=== PATIENT | male | born 1955 | race Caucasian/White ===

== ENCOUNTER → 2017-01-04 | Day surgery (SDC) | payer OTHER ==
--- NOTE | 2016-12-18 14:29 | PCM.ANEPRE ---
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 Echo also has been ordered but not completed for the same reason. Since this is an L&I case, presumably the patient can do > 4 mets. This is a low risk procedure, which is also amenable to a regional anesthetic technique. Okay to proceed provided patient doesn't have any active unstable conditions on evaluation DOS. Recommend monitoring per DONTE protocol post-op. Luis Antonio Motley MD Dec 18, 2016 14:29
[2017-01-04] VITALS (10 sets, daily range): BP systolic 105–124; BP diastolic 62–91; PULSE 60–69; RESP 10–16; O2SAT 93–97
[~2017-01-04] VITALS: Ht 180.3 cm; Wt 129.5 kg
[~2017-01-04] MED LIST: AMLO10TA3 PO; ASPI-973 PO; DOXA2TAB52 PO; Dexamethasone 4 mg/mL Inj IVPUSH PRN; Dexamethasone 4 mg/mL Inj ONE; EPHEDrine Sulfate 50 mg/mL Inj IVPUSH PRN; HYDROcodone-APAP 5-325 mg Tablet PO PRN; HYDROmorphone 1 mg/mL Inj IVPUSH PRN; HYG25 PO; Lactated Ringer's 1,000 ML IV SCH; Lactated Ringer's 500 ML IV PRN; Lidocaine 2%-Epi 1:100,000 20 mL Inj INFILTRATE ONE; MetoCLOpramide 5 mg/mL 2 mL Inj IVPUSH PRN; Ondansetron 2 mg/mL 2 mL Inj IVPUSH PRN; Ondansetron 2 mg/mL 2 mL Inj ONE; Phenylephrine 10,000 mCg/mL Inj IVPUSH PRN; Propofol 10 mg/mL 20 mL Inj ONE; Ropivacaine-PF 0.5% 30 mL Inj INFILTRATE ONE; SPIR100T3 PO; Succinylcholine Chloride 20 mg/mL 5 mL Inj ONE; VALS320T12 PO; fentaNYL-PF 50 mCg/mL 2 mL Inj IVPUSH PRN; fentaNYL-PF 50 mCg/mL 2 mL Inj ONE
[2017-01-04] MEDS: Lactated Ringer's 1,000 ML IV SCH ×2 (06:45→08:45)
--- NOTE | 2017-01-04 09:17 | PCM.HPANE ---
Patient Data Surgeon Admitting Provider: Attending Provider:Kole Leonard DO Primary Care Physician:Marlen Other Provider:Jeremy Cooley Anesthesia Reason for Visit Left Medial Meniscal Tear Ht/WT & BMI Height (Feet): 5 Height (Inches): 11 Weight (Kilograms): 131.17 Body Mass Index 40.00 Allergies Coded Allergies: bisoprolol (Verified Allergy, Unknown, slow pulse, 12/27/16) lisinopril (Verified Allergy, Unknown, cough, 12/27/16) Past Anesthesia History Anesthesia History: Denies:: Abnormal Airway, Anesthesia Reactions (no prior surgery), Difficult Intubation, Fam Anesthesia Reaction Diabetes History Hx Diabetes?: No MRSA MRSA: No Medications Blood Thinner: Aspirin Hypertension Medication: Yes Home Meds Incl Beta Alvarez: No Reported Medications Valsartan 320 Mg [id number] Mg PO DAILY 12/27/16 Spironolactone 100 Mg [id number] Mg PO DAILY #30 TABLET Ref 0 12/27/16 Doxazosin (Cardura)2 Mg Tablet2 Mg PO HS Ref 0 12/27/16 Chlorthalidone 25 Mg [id number] Mg PO DAILY #30 TABLET 12/27/16 Aspirin 81 Mg [id number] Mg PO DAILY Ref 0 12/27/16 Amlodipine 10 Mg [id number] Mg PO DAILY Ref 0 12/27/16 History History of ENT Problems?: No HEENT History: Positive for:: Hearing Problem Denies:: Abnormal Airway Cataracts Difficult Intubation Dysphagia Glaucoma Sinus Problem TMJ Denture Type: None Teeth Condition: Within Normal Limits Hx of Heart Problems?: Yes Cardiovascular History: Positive for:: Hypertension Denies:: AICD Coronary Artery Disease Edema Heart Murmur Irregular Heartbeat Pacemaker Peripheral Vascular Rheumatic Fever Thrombophlebitis Valvular Heart Disease Hx of Respiratory Problem?: Yes Respiratory History: Positive for:: Pneumonia (many years ago ) Denies:: Asthma COPD Emphysema Tuberculosis Use of C-PAP Machine (DONTE+ no sleep study done) Hx Neurologic Problems?: No Neurological History: Denies:: Alzheimer's Disease CVA Dementia Dizziness Headaches Multiple Sclerosis Parkinson's Disease Seizures TIA Hx of GI Problems?: No Hx of Problems?: Yes Genitourinary History: Positive for:: Kidney Stones (past hx of - passed spontaneously) Denies:: Urinary Tract Infection Male Hx: Denies:: Prostate Problems Skin History: Denies:: History Skin Disorders? Pressure Ulcers Hx Musculoskeletal Problems?: Yes Musculoskeletal History: Positive for:: Musculoskeletal Trauma (left knee current admission problem) Osteoarthritis Denies:: Back Injury Fibromyalgia Joint Replacement Myasthenia Gravis Systemic Lupus Hx of Psycho/Social Problems?: Yes Psycho Social History: Positive for:: Anxiety Denies:: Hx Depression Hx Surgeries?: No (no prior) Hx Any Other Health Problems?: Yes Other History: Denies:: Cancer Thyroid Disease History Blood Transfusions: Positive for:: Accept Blood Products? Denies:: Blood Transfusions Hx Diabetes: No Hx Alcohol Use: YesAlcoholic Drinks Per Day: rarely- years apartHx Substance Use: NoHave You Smoked inLast 12 mo: No Stop/Bang S-Snoring: Do You Snore Loudly: Yes T-Tired: feel tired, fatigued: No O-Obsered: Observed not breath: No P-Blood Pressure: treated: Yes B- Body Mass Index > 35 kg/m2: Yes A- Age over 50: Yes N- Neck Large Circumference: Yes G- Gender Male: Yes DONTE Total Score: 6 DONTE Risk Assessment: High Risk, =/>3 Yes DONTE Category 4 OutPt Procedure: Yes Risk Assessment Category Category 1A: Patient has history of documented sleep apnea, and HAS NOT received any narcotic, sedative or anesthesia administration during this stay. Category 1B: Patient has history of documented sleep apnea, and HAS received any narcotic , sedative or anesthesia administration during this stay Category 2: Patient has SUSPECTED Obstructive Sleep Apnea, and HAS received any narcotic , sedative or anesthesia administration during this stay. Category 3: Patient has SUSPECTED Obstructive Sleep Apnea and HAS NOT received narcotic, sedative or anesthesia administration during this stay. Category 4: Outpatient in Procedural Areas with known sleep apnea or who screen positive for High Risk via the STOP/BANG questionnaire. Exam Exam Vital Signs Vital Signs Date Time Temp Pulse Resp B/P Pulse Ox O2 Delivery O2 Flow Rate FiO2 01/04/17 07:01 64 12 119/62 95 Room Air General Appearance: Alert HEENT/AIRWAY: MP 2, Neck Movement (from, 2.5 fb) Lungs: Clear to Auscultation Heart: Regular Rate/Rhythm Meds/Labs/Diagnostics Admission Meds Current Medications Lactated Ringer's (Lr) 1,000 ml @ 120 mls/hr Q8H20M IV Last administered on t 06:45; Start 01/04/17 at 05:00; Stop 01/04/17 at 13:19 Plan Impression Patient chart reviewed, patient interviewed and anesthestic plan with risks, benefits, and alternatives discussed, and informed consent obtained. NPO per Anesth. Guidelines: Yes ASA Physical Status: ASA2 Mod Systemic Disease Anesthetic Plan: GA Bene/Risks/Altern/Consents: Yes HP Complete Prior to Induction: Yes Ronni Morgan MD Jan 04, 2017 07:22
--- NOTE | 2017-01-04 09:48 | PCM.ANEP1 ---
Post Anesthesia PACU Phase 1 Assessment Vital Signs Vital Signs Date Time Temp Pulse Resp B/P Pulse Ox O2 Delivery O2 Flow Rate FiO2 01/04/17 07:01 64 12 119/62 95 Room Air Anesthetic Administered: GA Level of Alertness: Awake, talking CODY's with Equal Strength: Yes Pain: No Nausea or Vomiting: No CV Function & Hydration Stable: Yes Airway Device: Oxygen Delivery: Simple Mask Lungs: Clear to Auscultation Dermatome Level: Full Sensation PACU Phase 2 Assessment Complications: No Follow up Care: N/A Patient Instructions Provided: N/A Ronni Morgan MD Jan 04, 2017 09:48
--- NOTE | 2017-01-04 13:47 | OP ---
[address] [id number] OPERATIVE REPORT PATIENT: MAGGIE DIAZ : 1955 MR#: [id number] ADMIT: 01/04/2017 JOB ID: [id number] DATE OF SURGERY: 01/04/2017 PREOPERATIVE DIAGNOSIS(ES): Left knee torn medial meniscus. POSTOPERATIVE DIAGNOSIS(ES): Left knee torn medial meniscus. PROCEDURE: Left knee video arthroscopy with partial medial meniscectomy. SURGEON: Kole Leonard DO ANESTHESIA: General. INDICATIONS: The patient is a 61-year-old male who injured his left knee at work and sustained a torn medial meniscus and wished to proceed with a knee arthroscopy. We discussed the risks, benefits, and possible complications of surgery. All questions were answered. He wished to proceed. PROCEDURE IN DETAIL: The patient was brought to the operating room. He was given preoperative LMA general anesthetic and then converted to an endotracheal tube. The left lower extremity was sterilely prepped and draped and an incision was made over the anterolateral lateral knee at the level of the joint line. The blunt trocar was introduced and the scope was used to inspect the knee. He was found to have a tear in the posterior horn medial meniscus. A medial portal was established under needle localization and the medial meniscal tear was identified. This was resected back to a stable base with a combination of biters and shaver. The scope was then removed. He was also noted to have a small amount of synovitis in the patellofemoral region which was resected with the shaver. His articular cartilage was in excellent condition, with only some mild scuffing in the medial femoral condyle. His ACL was intact. The lateral compartment was pristine. The patellofemoral compartment had no degenerative changes. The scope was removed and the portals were closed with interrupted nylon suture. Naropin was added as an adjunct local anesthetic. Sterile dressings were applied. The patient tolerated the procedure well. BLOOD LOSS: Minimal. POSTOPERATIVE PROTOCOL: Will have the patient weightbear to tolerance. Use crutches as needed. Ice and elevate. Follow up in clinic in two weeks or sooner if needed. He was given a prescription for [place] 5/325, #15 for pain.
== END | disposition home or self-care (01) ==
LOC: SAS 06:35
PROVIDERS: ATTEND Orthopaedic Surgery
DX: S83.242A Other tear of medial meniscus, current injury, left knee, initial encounter (principal); I10 Essential (primary) hypertension; E66.01 Morbid (severe) obesity due to excess calories; Z68.39 Body mass index [BMI] 39.0-39.9, adult
CPT/HCPCS: 29882; J0330; J1100; J1885; J2405; J2704; J2795; J3010; J7120